=== PATIENT | female | born 1995 | race Caucasian/White ===

== ENCOUNTER 2016-06-19 21:46 | Emergency (ER) | payer MEDICAID ==
[2016-06-19 22:35] VITALS: BP 112/66
[2016-06-19] MEDS ORDERED: Sodium Chloride 0.9% 1,000 ML IV ONE (22:39)
--- NOTE | 2016-06-19 22:59 | EDM.PDOC ---
ED HPI GENERAL MEDICAL PROBLEM - General Stated Complaint: LIGHT HEADED AND DARK VISION Time Seen by Provider: 06/19/16 21:50 Source of Information: Reports: Patient, Family History Limitations: Reports: No limitations - History of Present Illness INITIAL COMMENTS - FREE TEXT/NARRATIVE: 21 years old w f AB1 came to the ed because of a near syncopal episode. Pt 's LNMP was Jan 23 2016. She has occ dizzy spells and was just to pas out. Pt denied pain. no vag discharge. Pt vomited last week but not in the fast 3 days. last pelvic US at 8 weeks of was nl. No other acute medical issues at this time. 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 Musculoskeletal History: Reports: Fracture Neurological History: Reports: Concussion Social & Family History - Family History Family Medical History: Noncontributory - Tobacco Use Smoking Status *Q: Current Every Day Smoker Years of Tobacco use: 15 Packs/Tins Daily: 1 Second Hand Smoke Exposure: Yes - Caffeine Use Caffeine Use: Reports: Coffee - Alcohol Use Days Per Week of Alcohol Use: 7 Number of Drinks Per Day: 15 Total Drinks Per Week: 105 - Recreational Drug Use Recreational Drug Use: No ED ROS GENERAL - Review of Systems Review Of Systems: See Below Constitutional: Reports: fatigue, decreased appetite HEENT: Reports: No symptoms Respiratory: Reports: No Symptoms Cardiovascular: Reports: No symptoms Endocrine: Reports: no symptoms GI/Abdominal: Reports: No symptoms : Reports: no symptoms Musculoskeletal: Reports: no symptoms Skin: Reports: no symptoms Neurological: Reports: Dizziness Psychiatric: Reports: No symptoms Hematologic/Lymphatic: Reports: no symptoms Immunologic: Reports: no symptoms ED EXAM, GENERAL - Physical Exam Exam: See Below Exam Limited By: No limitations General Appearance: alert, WD/WN, mild distress Eye Exam: bilateral eye: normal inspection Ears: normal external exam Ear Exam: bilateral ear: auricle normal Nose: normal inspection, normal mucosa, no blood Throat/Mouth: Normal inspection, Normal lips, Normal teeth Head: atraumatic, normocephalic, facial swelling Neck: normal inspection, supple, non-tender Respiratory/Chest: no respiratory distress Cardiovascular: normal peripheral pulses, regular rate, rhythm, no edema, no gallop, no JVD, no murmur, no rub Peripheral Pulses: 2+: femoral (L), femoral (R) GI/Abdominal: normal bowel sounds, soft, non tender, no organomegaly, no distention, no abnormal bruit (Female) Exam: Deferred Rectal (Female) Exam: Deferred Back Exam: normal inspection, full range of motion Extremities: normal inspection, normal range of motion, non-tender, no pedal edema Neurological: alert, oriented, CN II-XII intact, normal cognition, normal gait Psychiatric: normal affect, normal mood Skin Exam: Warm, Dry, Intact, No rash, Pallor Lymphatic: no adenopathy Course - Vital Signs Text/Narrative:: 21 years old w f AB1, smoker, came to the ed because of a near syncopal episode. Pt's LNMP was Jan 23 2016. She has occ dizzy spells and was just to pas out. Pt denied pain. no vag discharge. Pt vomited last week but not in the fast 3 days. last pelvic US at 8 weeks of was nl. No other acute medical issues at this time. PE: well appearing 21 y.o.w.f s/o near [place] 3 days ago Labs: potassium 3.3 Impression: Hypokalemia, near syncopal episode 3 days ago Tx: NS, potassium Reexam: Improved Plan: D/C with instructions. Last Recorded V/S: Last Vital Signs Temp 36.1 C 06/19/16 21:50 Pulse 76 06/19/16 21:50 Resp 20 06/19/16 21:50 BP 112/66 06/19/16 21:50 Pulse Ox 100 06/19/16 21:50 - Orders/Labs/Meds Orders: Active Orders 24 hr Category Date Time Status HCG QUANTITATIVE,SERUM [CHEM] Stat Lab 06/19/16 22:50 Received Labs: Laboratory Tests 06/19/16 06/19/16 06/19/16 Range/Units 22:50 22:50 22:50 WBC 6.8 (4.5-12.0) X10-3/uL RBC 3.51 (3.23-5.20) x10(6)uL Hgb 12.0 (11.5-15.5) g/dL Hct 33.3 (30.0-51.3) % MCV 94.9 (80-96) fL MCH 34.1 H (27.7-33.6) pg MCHC 36.0 H (32.2-35.4) g/dL RDW 12.3 (11.5-15.5) % Plt Count 218 (125-369) X10(3)uL MPV 8.1 (7.4-10.4) fL Neut % (Auto) 71.8 (46-82) % Lymph % (Auto) 20.9 (13-37) % [place] % (Auto) 6.0 (4-12) % Eos % (Auto) 1 (1.0-5.0) % Baso % (Auto) 0 (0-2) % Neut # (Auto) 4.9 (1.6-8.3) # Lymph # (Auto) 1.4 (0.6-5.0) # [place] # (Auto) 0.4 (0.0-1.3) # Eos # (Auto) 0.1 (0.0-0.8) # Baso # (Auto) 0.0 (0.0-0.2) # PT 9.6 (8.7-11.1) INR 0.95 (0.89-1.13) Sodium 135 (135-145) mmol/L Potassium 3.3 L (3.5-5.3) mmol/L Chloride 106 (100-110) mmol/L Carbon Dioxide 23 (23-29) mmol/L BUN 4 L (5-20) mg/dL Creatinine 0.5 L (0.6-1.3) mg/dL Est Cr Clr Drug Dosing 182.88 mL/min Estimated GFR (MDRD) > 60 (>60) BUN/Creatinine Ratio 8.0 L (9-20) Glucose 82 (80-116) mg/dL Calcium 8.7 (8.6-10.2) mg/dL Urine Color (YELLOW) Urine Appearance (CLEAR) Urine pH (5.0-6.5) Ur Specific [place] (1.010-1.025) Urine Protein (NEGATIVE) mg/dL Urine Glucose (UA) (NEGATIVE) mg/dL Urine Ketones (NEGATIVE) mg/dL Urine Occult Blood (NEGATIVE) Urine Nitrite (NEGATIVE) Urine Bilirubin (NEGATIVE) Urine Urobilinogen (NEGATIVE) mg/dL Ur Leukocyte Esterase (NEGATIVE) Urine RBC (0) Urine WBC (0) Ur Squamous Epith Cells (NS,R,O) Urine Bacteria (NS) 06/19/16 Range/Units 22:55 WBC (4.5-12.0) X10-3/uL RBC (3.23-5.20) x10(6)uL Hgb (11.5-15.5) g/dL Hct (30.0-51.3) % MCV (80-96) fL MCH (27.7-33.6) pg MCHC (32.2-35.4) g/dL RDW (11.5-15.5) % Plt Count (125-369) X10(3)uL MPV (7.4-10.4) fL Neut % (Auto) (46-82) % Lymph % (Auto) (13-37) % [place] % (Auto) (4-12) % Eos % (Auto) (1.0-5.0) % Baso % (Auto) (0-2) % Neut # (Auto) (1.6-8.3) # Lymph # (Auto) (0.6-5.0) # [place] # (Auto) (0.0-1.3) # Eos # (Auto) (0.0-0.8) # Baso # (Auto) (0.0-0.2) # PT (8.7-11.1) INR (0.89-1.13) Sodium (135-145) mmol/L Potassium (3.5-5.3) mmol/L Chloride (100-110) mmol/L Carbon Dioxide (23-29) mmol/L BUN (5-20) mg/dL Creatinine (0.6-1.3) mg/dL Est Cr Clr Drug Dosing mL/min Estimated GFR (MDRD) (>60) BUN/Creatinine Ratio (9-20) Glucose (80-116) mg/dL Calcium (8.6-10.2) mg/dL Urine Color Yellow (YELLOW) Urine Appearance Clear (CLEAR) Urine pH 6.5 (5.0-6.5) Ur Specific [place] 1.000 L (1.010-1.025) Urine Protein Negative (NEGATIVE) mg/dL Urine Glucose (UA) Normal (NEGATIVE) mg/dL Urine Ketones Negative (NEGATIVE) mg/dL Urine Occult Blood Negative (NEGATIVE) Urine Nitrite Negative (NEGATIVE) Urine Bilirubin Negative (NEGATIVE) Urine Urobilinogen Normal (NEGATIVE) mg/dL Ur Leukocyte Esterase Negative (NEGATIVE) Urine RBC 0-5 (0) Urine WBC 0-5 (0) Ur Squamous Epith Cells Moderate H (NS,R,O) Urine Bacteria Moderate H (NS) Meds: Medications Discontinued Medications Generic Name Dose Route Start Last Admin Trade Name Freq PRN Reason Stop Dose Admin Sodium Chloride 1,000 mls @ 999 mls/hr 06/19/16 22:39 06/19/16 22:59 Normal Saline IV 06/19/16 23:39 999 mls/hr .BOLUS ONE Administration Potassium Chloride 40 meq 06/19/16 23:26 06/19/16 23:50 Klor-Con M20 PO 06/19/16 23:27 40 meq ONETIME ONE Administration Departure - Departure Time of Disposition: 23:47 Disposition: Home, Self-Care 01 Condition: good Clinical Impression: Hypokalemia, Vasovagal near syncope Prescriptions: Ondansetron [Zofran ODT] 4 mg PO Q6H PRN #20 tab.dis PRN Reason: Nausea Referrals: Tommie Aguilar MD [Primary Care Provider] - Forms: ED Department Discharge, Return to Work/School Form Additional Instructions: Please quit tobacco use, please take Zofran for nausea, please increase food and water intake, please f/u, please come back if your symptoms get worse acutely. - My Orders Last 24 Hours: My Active Orders 06/19/16 22:50 HCG QUANTITATIVE,SERUM [CHEM] Stat - Assessment/Plan Last 24 Hours: My Active Orders 06/19/16 22:50 HCG QUANTITATIVE,SERUM [CHEM] Stat
[2016-06-19] MEDS ORDERED: Potassium Chloride 20 MEQ Tab.ER PO ONE (23:26)
== END 2016-06-20 00:15 | disposition home or self-care (01) ==
LOC: FB.ED 21:46
DX: O99.282 Endocrine, nutritional and metabolic diseases complicating pregnancy, second trimester (principal); E87.6 Hypokalemia; R55 Syncope and collapse; O99.332 Smoking (tobacco) complicating pregnancy, second trimester; F17.210 Nicotine dependence, cigarettes, uncomplicated
CPT/HCPCS: 80048; 81001; 84702; 85025; 85610; 96360; 99283; A9270; J7040

== ENCOUNTER 2016-12-07 06:55 | Inpatient (IN) | payer MEDICAID ==
[2016-12-07] MEDS ORDERED: Misoprostol 25 MCG (1/4 of 100 MCG) Tab VAG ONE (07:08)
[2016-12-07] MEDS ORDERED: Sodium Chloride 0.9% 10 ML Syringe FLUSH PRN (08:55)
--- NOTE | 2016-12-07 09:25 | PCM.LDHP ---
L&D History of Present Illness - General Date of Service: 12/07/16 Admit Problem/Dx: Patient Status Order with Admit Dx/Problem 12/07/16 07:00 Admission Status [Patient Status] [ADT] Routine Admission Diagnosis/Problem Admission Diagnosis/Problem History Limitations: Reports: No Limitations - History of Present Illness Introduction:: 21-year-old female primigravida here for induction of labor EDC 12/05. She has no complaints today. Active movements. No bleeding all dysuria or frequency. Group B Strep negative. care unremarkable - Related Data Allergies/Adverse Reactions: Allergies Allergy/AdvReac Type Severity Reaction Status Date / Time No Known Allergies Allergy Verified 12/07/16 07:26 Home Medications: Home Meds PNV95/Ferrous Fumarate/FA [ Tablet] 1 each PO DAILY 12/06/16 [History] Past Medical History HEENT History: Reports: Impaired Vision [employer] WORK[employer] History: Reports: , Spontaneous Other OB/BYN History: 16 weeks at this time Musculoskeletal History: Reports: Fracture Neurological History: Reports: Concussion - Infectious Disease History Infectious Disease History: Reports: Chicken Pox - Past Surgical History HEENT Surgical History: Reports: None Neurological Surgical History: Reports: None Musculoskeletal Surgical History: Reports: None Oncologic Surgical History: Reports: None Social & Family History - Family History Family Medical History: Noncontributory Psychiatric: Reports: Other (See Below) Other Psychiatric Family History: mother has mental illness Endocrine/Metabolic: Reports: Diabetes, type II Other Endocrine/Metabolic Family History: mother has diabetes - Tobacco Use Smoking Status *Q: Current Every Day Smoker Years of Tobacco use: 15 Packs/Tins Daily: 1 Used Tobacco, but Quit: No Second Hand Smoke Exposure: Yes - Caffeine Use Caffeine Use: Reports: None - Alcohol Use Days Per Week of Alcohol Use: 7 Number of Drinks Per Day: 15 Total Drinks Per Week: 105 - Recreational Drug Use Recreational Drug Use: No H&P Review of Systems - Review of Systems: Review Of Systems: ROS reveals no pertinent complaints other than HPI. L&D Exam - Exam Exam: See Below - Vital Signs Vital Signs: Last Vital Signs Temp 98.8 F 12/07/16 07:06 Pulse 83 12/07/16 07:06 Resp 20 12/07/16 07:06 BP 123/74 12/07/16 07:06 Pulse Ox 100 12/07/16 07:06 Weight: 82.1 kg - OB Specific Contraction Intensity: Irritability - Mercedes Score Mercedes Score Cervix Position: Posterior Mercedes Score Consistency: Soft Mercedes Score Dilation: Closed Mercedes Score 's Station: -3 - Exam General: Alert, Oriented HEENT: PERRLA, Conjunctiva Clear, EACs Clear, EOMI, Hearing Intact, Mucosa Moist & [place], Nares Patent, Normal Nasal Septum, Posterior Pharynx Clear, TMs Clear Neck: Supple, Trachea Midline Lungs: Clear to Auscultation, Normal Respiratory Effort Cardiovascular: Regular Rate, Regular Rhythm GI/Abdominal Exam: Normal Bowel Sounds, Soft, Non-Tender, No Organomegaly, No Distention, No Abnormal Bruit, No Mass, Pelvis Stable Rectal Exam: Normal Exam, Normal Rectal Tone Genitourinary: Normal external exam, Normal bimanual exam, Normal speculum exam Back Exam: Normal Inspection, Full Range of Motion Extremities: Normal Inspection, Normal Range of Motion, Non-Tender, No Pedal Edema, Normal Capillary Refill Skin: Warm, Dry, Intact Neurological: Cranial Nerves Intact, Reflexes Equal Bilateral Psychiatric: Alert, Normal Affect, Normal Mood - Problem List (1) Term SNOMED Code(s): 89185227 ICD Code: Z34.80 - ENCOUNTER FOR SUPRVSN OF NORMAL , UNSP TRIMESTER Status: Acute Current Visit: Yes (2) Elective induction of labor planned SNOMED Code(s): 704893303 ICD Code: SMH5369 - Status: Acute Current Visit: Yes Problem List Initiated/Reviewed/Updated: Yes Orders Last 24hrs: Active Orders 24 hr Category Date Time Status Admission Status [Patient Status] [ADT] Routine ADT 12/07/16 07:00 Active Regular Diet [DIET] Diet 12/07/16 Lunch Active Sodium Chloride 0.9% [Saline Flush] Med 12/07/16 08:55 Active 10 ml FLUSH ASDIRECTED PRN Peripheral IV Insertion Adult [OM.PC] Routine Oth 12/07/16 08:55 Ordered Medication Orders Sodium Chloride (Saline Flush) 10 ml FLUSH ASDIRECTED PRN PRN Reason: Keep Vein Open Assessment/Plan Comment:: Routine Cytotec induction, she has unfavorable cervix. We'll probably repeat another one around noon and then start Pitocin.
[2016-12-07] MEDS ORDERED: Measles, Mumps & Rubella Vaccine 0.5 ML SDV SUBCUT ONE (11:11)
[2016-12-07] MEDS ORDERED: Lactated Ringers 1,000 ML IV ONE (14:35)
[2016-12-07] MEDS: Lactated Ringers 1,000 ML IV SCH ×3 (15:30→20:11)
[2016-12-07] MEDS ORDERED: ePHEDrine 50 MG/ML SDV ONE (17:37)
[2016-12-07] MEDS ORDERED: Naloxone 0.4 MG/ML SDV ONE (17:38)
[2016-12-07] MEDS ORDERED: fentaNYL 300 MCG in Ropivacaine 200 ML EPIDUR ONE (17:46)
[2016-12-07] MEDS ORDERED: fentaNYL 100 MCG/2 ML SDV EPIDUR ONE (17:46)
[2016-12-07] MEDS ORDERED: ePHEDrine 50 MG/ML SDV IVPUSH PRN (19:00)
[2016-12-07] MEDS ORDERED: hydrOXYzine HCl 50 MG/ML SDV IM PRN ×2 (19:00)
[2016-12-07] MEDS ORDERED: Naloxone 0.4 MG in Sodium Chloride 0.9% 100 ML IV PRN (19:00)
[2016-12-07] MEDS ORDERED: diphenhydrAMINE 50 MG/ML SDV IVPUSH PRN (19:00)
[2016-12-07] MEDS ORDERED: Naloxone 0.4 MG/ML SDV IVPUSH PRN (19:00)
[2016-12-07] MEDS ORDERED: Promethazine 25 MG/ML SDV IV PRN (19:00)
[2016-12-07] MEDS ORDERED: Ondansetron 4 MG/2 ML SDV IVPUSH PRN (19:05)
[2016-12-07] MEDS ORDERED: Lactated Ringers 500 ML IV ONE (19:15)
--- NOTE | 2016-12-07 21:38 | PCM.PNLD ---
Labor Progress Note - VS & Meds Vital Signs: Last Vital Signs Temp 98.3 F 12/07/16 17:33 Pulse 72 12/07/16 17:33 Resp 18 12/07/16 17:33 BP 129/80 12/07/16 17:33 Pulse Ox 100 12/07/16 17:33 Active Medications: Current Medications Diphenhydramine HCl (Benadryl) 25 mg IVPUSH ASDIRECTED PRN PRN Reason: PRURITUS Ephedrine Sulfate (Ephedrine Sulfate) 5 mg IVPUSH ASDIRECTED PRN PRN Reason: HYPOTENSION Hydroxyzine HCl (Vistaril) 50 mg IM Q6H PRN PRN Reason: PRURITIS Hydroxyzine HCl (Vistaril) 0 mg IM Q4H PRN PRN Reason: N/V Lactated Ringer's (Ringers, Lactated) 1,000 mls @ 150 mls/hr IV ASDIRECTED ADITI Last Admin: 12/07/16 20:11 Dose: 150 mls/hr Naloxone HCl 0.4 mg/ Sodium (Chloride) 101 mls @ 25 mls/hr IV ASDIRECTED PRN PRN Reason: PER ORDER OF ANESTHESIA Naloxone HCl (Narcan) 0.1 mg IVPUSH ASDIRECTED PRN PRN Reason: RESPIRATORY STATUS Ondansetron HCl (Zofran) 4 mg IVPUSH Q6H PRN PRN Reason: Nausea/Vomiting Promethazine HCl (Phenergan) 6.25 - 12.5 mg IV Q4H PRN PRN Reason: NAUSEA AND VOMITING Sodium Chloride (Saline Flush) 10 ml FLUSH ASDIRECTED PRN PRN Reason: Keep Vein Open Discontinued Medications Ephedrine Sulfate (Ephedrine Sulfate) Confirm Administered Dose 50 mg .ROUTE .STK-MED ONE Stop: 12/07/16 17:38 Lactated Ringer's (Ringers, Lactated) 1,000 mls @ 999 mls/hr IV BOLUS ONE Stop: 12/07/16 15:35 Last Admin: 12/07/16 14:35 Dose: 999 mls/hr Lactated Ringer's (Ringers, Lactated) 500 mls @ 999 mls/hr IV ONETIME ONE Stop: 12/07/16 19:45 Measles/Mumps/Rubella Vaccine Live (M-M-R Ii Vaccine) 0.5 ml SUBCUT .ONCE ONE Stop: 12/07/16 11:12 Misoprostol (Cytotec) 25 mcg VAG ONETIME ONE Stop: 12/07/16 07:09 Last Admin: 12/07/16 08:43 Dose: 25 mcg Naloxone HCl (Narcan) Confirm Administered Dose 0.4 mg .ROUTE .STK-MED ONE Stop: 12/07/16 17:39 - Uterine Contractions Uterine Monitoring Mode: External Henriette Contraction Frequency (min): 4-5 Contraction Duration (sec): 50-70 Contraction Intensity: Mild Uterine Resting Tone: Soft - Vaginal Exam Dilation (cm): 7 Effacement (Percent): 90 Station: -1 Cervical Position: Midposition Sterile Vaginal Exam Performed By: Otilia Balderas - Labor Progress (Free Text) Labor Progress: I broke the water about 5 PM.Clear fluid.Patient requested epidural. She is resting comfortably about 7 cm at this time we'll continue with expectant management.
[2016-12-08] MEDS ORDERED: Oxytocin 10 Units/1 ML SDV IV ONE (00:45)
[2016-12-08] MEDS ORDERED: Ibuprofen 600 MG Tab PO PRN (00:59)
[2016-12-08] MEDS ORDERED: Acetaminophen/HYDROcodone 325-5 MG Tab PO PRN (00:59)
--- NOTE | 2016-12-08 01:05 | PCM.DEL ---
L & D Note - General Info Date of Service: 12/08/16 Mother's Due Date: 12/05/16 - Delivery Note Labor: Augmented by ARM Cervical Ripening Method: Misoprostil Delivery Outcome: Livebirth Infant Delivery Method: Spontaneous Vaginal Delivery-Single Presentation: Left Occiput Anterior (ARIC) Nuchal Cord: None Prep: Povidone-Iodine (Betadine Anesthesia Type: Epidural Amniotic Fluid Description: Meconium Stained Episiotomy Type: None Laceration: 1st Degree, Perineal, Periurethral Placenta: Intact, Spontaneous Cord: 3 Vessels Estimated Blood Loss: 250 [place]: Bulb Syringe, [place] Used, Warmer Used Score 1 min: 8 Score 5 min: 9 Second Stage Interventions: Reports: Second Nurse Assessed Progress of Descent, Second Nurse Reviewed Contraction Pattern, Second Nurse Reviewed Heart Tones, Encouragement Given, Pushing Effectively, Pushing, Knee Chest Position - General Info Date of Service: 12/08/16 Functional Status: Reports: Pain Controlled - Review of Systems General: Reports: No Symptoms HEENT: Reports: No Symptoms Pulmonary: Reports: No Symptoms Cardiovascular: Reports: No Symptoms Gastrointestinal: Reports: No Symptoms Genitourinary: Reports: No Symptoms Musculoskeletal: Reports: No Symptoms Skin: Reports: No Symptoms Neurological: Reports: No Symptoms Psychiatric: Reports: No Symptoms - Patient Data Vitals - Most Recent: Last Vital Signs Temp 98.8 F 12/07/16 21:00 Pulse 69 12/07/16 21:00 Resp 17 12/07/16 21:00 BP 125/76 12/07/16 21:00 Pulse Ox 98 12/07/16 21:00 Weight - Most Recent: 82.1 kg I&O - Last 24 Hours: Intake & Output 12/07/16 12/07/16 12/08/16 14:59 22:59 06:59 Intake Total 1000 Output Total 500 1950 Balance 500 -1950 Med Orders - Current: Current Medications Diphenhydramine HCl (Benadryl) 25 mg IVPUSH ASDIRECTED PRN PRN Reason: PRURITUS Ephedrine Sulfate (Ephedrine Sulfate) 5 mg IVPUSH ASDIRECTED PRN PRN Reason: HYPOTENSION Hydroxyzine HCl (Vistaril) 50 mg IM Q6H PRN PRN Reason: PRURITIS Hydroxyzine HCl (Vistaril) 0 mg IM Q4H PRN PRN Reason: N/V Lactated Ringer's (Ringers, Lactated) 1,000 mls @ 150 mls/hr IV ASDIRECTED ADITI Last Admin: 12/07/16 20:11 Dose: 150 mls/hr Naloxone HCl 0.4 mg/ Sodium (Chloride) 101 mls @ 25 mls/hr IV ASDIRECTED PRN PRN Reason: PER ORDER OF ANESTHESIA Naloxone HCl (Narcan) 0.1 mg IVPUSH ASDIRECTED PRN PRN Reason: RESPIRATORY STATUS Ondansetron HCl (Zofran) 4 mg IVPUSH Q6H PRN PRN Reason: Nausea/Vomiting Promethazine HCl (Phenergan) 6.25 - 12.5 mg IV Q4H PRN PRN Reason: NAUSEA AND VOMITING Sodium Chloride (Saline Flush) 10 ml FLUSH ASDIRECTED PRN PRN Reason: Keep Vein Open Discontinued Medications Ephedrine Sulfate (Ephedrine Sulfate) Confirm Administered Dose 50 mg .ROUTE .[employer] ONE Stop: 12/07/16 17:38 Last Admin: 12/07/16 21:58 Dose: Not Given Lactated Ringer's (Ringers, Lactated) 1,000 mls @ 999 mls/hr IV BOLUS ONE Stop: 12/07/16 15:35 Last Admin: 12/07/16 14:35 Dose: 999 mls/hr Lactated Ringer's (Ringers, Lactated) 500 mls @ 999 mls/hr IV ONETIME ONE Stop: 12/07/16 19:45 Last Admin: 12/07/16 21:58 Dose: Not Given Measles/Mumps/Rubella Vaccine Live (M-M-R Ii Vaccine) 0.5 ml SUBCUT .ONCE ONE Stop: 12/07/16 11:12 Misoprostol (Cytotec) 25 mcg VAG ONETIME ONE Stop: 12/07/16 07:09 Last Admin: 12/07/16 08:43 Dose: 25 mcg Naloxone HCl (Narcan) Confirm Administered Dose 0.4 mg .ROUTE .STK-MED ONE Stop: 12/07/16 17:39 Last Admin: 12/07/16 21:58 Dose: Not Given - Exam General: Alert, Oriented HEENT: Pupils Equal, Pupils Reactive, EOMI, Mucous Membr. Moist/[place] Neck: Supple Lungs: Clear to Auscultation, Normal Respiratory Effort Cardiovascular: Regular Rate, Regular Rhythm GI/Abdominal Exam: Normal Bowel Sounds, Soft, Non-Tender, No Organomegaly, No Distention, No Abnormal Bruit, No Mass, Pelvis Stable (Female) Exam: Normal External Exam, Normal Speculum Exam, Normal Bimanual Exam Back Exam: Normal Inspection, Full Range of Motion Extremities: Normal Inspection, Normal Range of Motion, Non-Tender, No Pedal Edema, Normal Capillary Refill Skin: Warm, Dry, Intact Wound/Incisions: Healing Well Neurological: No New Focal Deficit Psy/Mental Status: Alert, Normal Affect, Normal Mood - Problem List & Annotations (1) Term SNOMED Code(s): 56508951 Code(s): Z34.80 - ENCOUNTER FOR SUPRVSN OF NORMAL , UNSP TRIMESTER Status: Acute Current Visit: Yes (2) Elective induction of labor planned SNOMED Code(s): 933937864 Code(s): [id number] - Status: Acute Current Visit: Yes (3) Vaginal delivery SNOMED Code(s): 122654765 Code(s): O80 - ENCOUNTER FOR FULL-TERM UNCOMPLICATED DELIVERY Status: Acute Current Visit: Yes - Problem List Review Problem List Initiated/Reviewed/Updated: Yes - My Orders Last 24 Hours: My Active Orders 12/07/16 07:00 Admission Status [Patient Status] [ADT] Routine 12/07/16 08:55 Sodium Chloride 0.9% [Saline Flush] 10 ml FLUSH ASDIRECTED PRN Peripheral IV Insertion Adult [OM.PC] Routine 12/07/16 11:13 Vaccines to be Administered [RC] QSHIFT 12/07/16 15:45 Lactated Ringers [Ringers, Lactated] 1,000 ml IV ASDIRECTED 12/07/16 17:06 Admission Status [Patient Status] [ADT] Routine 12/07/16 19:00 Naloxone [Narcan] 0.1 mg IVPUSH ASDIRECTED PRN Naloxone [Narcan] 0.4 mg Sodium Chloride 0.9% [Normal Saline] 100 ml IV ASDIRECTED Promethazine [Phenergan] 6.25 - 12.5 mg IV Q4H PRN diphenhydrAMINE [Benadryl] 25 mg IVPUSH ASDIRECTED PRN ePHEDrine [ePHEDrine Sulfate] 5 mg IVPUSH ASDIRECTED PRN hydrOXYzine HCl [Vistaril] 0 mg IM Q4H PRN hydrOXYzine HCl [Vistaril] 50 mg IM Q6H PRN 12/07/16 19:05 Ondansetron [Zofran] 4 mg IVPUSH Q6H PRN 12/07/16 21:00 Urinary Catheter Insertion [Insert Urinary Catheter] [OM.PC] Q24H 12/07/16 21:01 Urinary Catheter Assessment [RC] QSHIFT 12/07/16 Lunch Regular Diet [DIET] 12/08/16 00:59 Up ad [place] [RC] ASDIRECTED Vital Signs [RC] PFP Acetaminophen/HYDROcodone [[place] 325-5 MG] 1 tab PO Q4H PRN Ibuprofen [Motrin] 600 mg PO Q4H PRN Assess Uterine Involution [WOMSER] Per Unit Routine Resuscitation Status Routine 12/08/16 01:00 Ice Therapy [OM.PC] Per Unit Routine Perineal Care [OM.PC] Per Unit Routine 12/08/16 05:11 CBC WITH AUTO DIFF [HEME] AM - Plan Plan:: Routine OB post care.
--- NOTE | 2016-12-09 08:16 | PCM.PNPP ---
- General Info Date of Service: 12/09/16 Functional Status: Reports: Pain Controlled, Tolerating Diet - Review of Systems General: Reports: No Symptoms HEENT: Reports: No Symptoms Pulmonary: Reports: No Symptoms Cardiovascular: Reports: No Symptoms Gastrointestinal: Reports: No Symptoms Genitourinary: Reports: No Symptoms Musculoskeletal: Reports: No Symptoms Skin: Reports: No Symptoms Neurological: Reports: No Symptoms Psychiatric: Reports: No Symptoms - General Info Date of Service: 12/09/16 - Patient Data Vital Signs - Most Recent: Last Vital Signs Temp 98.3 F 12/09/16 01:00 Pulse 79 12/09/16 01:00 Resp 18 12/09/16 01:00 BP 109/71 12/09/16 01:00 Pulse Ox 98 12/09/16 01:00 Weight - Most Recent: 82.1 kg Med Orders - Current: Current Medications Hydrocodone Bitart/Acetaminophen ([place] 325-5 Mg) 1 tab PO Q4H PRN PRN Reason: Pain (moderate 4-6) Last Admin: 12/08/16 02:36 Dose: 1 tab Ibuprofen (Motrin) 600 mg PO Q4H PRN PRN Reason: Pain Last Admin: 12/08/16 15:50 Dose: 600 mg Sodium Chloride (Saline Flush) 10 ml FLUSH ASDIRECTED PRN PRN Reason: Keep Vein Open Discontinued Medications Diphenhydramine HCl (Benadryl) 25 mg IVPUSH ASDIRECTED PRN PRN Reason: PRURITUS Ephedrine Sulfate (Ephedrine Sulfate) Confirm Administered Dose 50 mg .ROUTE .STK-MED ONE Stop: 12/07/16 17:38 Last Admin: 12/07/16 21:58 Dose: Not Given Ephedrine Sulfate (Ephedrine Sulfate) 5 mg IVPUSH ASDIRECTED PRN PRN Reason: HYPOTENSION Hydroxyzine HCl (Vistaril) 50 mg IM Q6H PRN PRN Reason: PRURITIS Hydroxyzine HCl (Vistaril) 0 mg IM Q4H PRN PRN Reason: N/V Lactated Ringer's (Ringers, Lactated) 1,000 mls @ 999 mls/hr IV BOLUS ONE Stop: 12/07/16 15:35 Last Admin: 12/07/16 14:35 Dose: 999 mls/hr Lactated Ringer's (Ringers, Lactated) 1,000 mls @ 150 mls/hr IV ASDIRECTED ADITI Last Admin: 12/07/16 20:11 Dose: 150 mls/hr Naloxone HCl 0.4 mg/ Sodium (Chloride) 101 mls @ 25 mls/hr IV ASDIRECTED PRN PRN Reason: PER ORDER OF ANESTHESIA Lactated Ringer's (Ringers, Lactated) 500 mls @ 999 mls/hr IV ONETIME ONE Stop: 12/07/16 19:45 Last Admin: 12/07/16 21:58 Dose: Not Given Measles/Mumps/Rubella Vaccine Live (M-M-R Ii Vaccine) 0.5 ml SUBCUT .ONCE ONE Stop: 12/07/16 11:12 Misoprostol (Cytotec) 25 mcg VAG ONETIME ONE Stop: 12/07/16 07:09 Last Admin: 12/07/16 08:43 Dose: 25 mcg Naloxone HCl (Narcan) Confirm Administered Dose 0.4 mg .ROUTE .STK-MED ONE Stop: 12/07/16 17:39 Last Admin: 12/07/16 21:58 Dose: Not Given Naloxone HCl (Narcan) 0.1 mg IVPUSH ASDIRECTED PRN PRN Reason: RESPIRATORY STATUS Ondansetron HCl (Zofran) 4 mg IVPUSH Q6H PRN PRN Reason: Nausea/Vomiting Last Admin: 12/08/16 00:00 Dose: 4 mg Oxytocin (Pitocin) 20 unit IV ONETIME ONE Stop: 12/08/16 00:46 Last Admin: 12/08/16 00:46 Dose: 20 unit Promethazine HCl (Phenergan) 6.25 - 12.5 mg IV Q4H PRN PRN Reason: NAUSEA AND VOMITING - Interaction Support Person: Significant Other - Recovery Exam Fundal Tone: Firm Fundal Level: 1 Fingerbreadths Below Umbilicus Fundal Placement: Midline Lochia Amount: Small, Moderate Lochia Color: Rubra/Red Perineum Description: Intact, Minimal Bruising/Swelling Episiotomy/Laceration: None Bladder Status: Voiding Urinary Elimination: Voided - Exam General: Alert, Oriented HEENT: Pupils Equal Neck: Supple Lungs: Clear to Auscultation, Normal Respiratory Effort Cardiovascular: Regular Rate, Regular Rhythm GI/Abdominal Exam: Normal Bowel Sounds, Soft, Non-Tender, No Organomegaly, No Distention, No Abnormal Bruit, No Mass, Pelvis Stable Extremities: Normal Inspection, Normal Range of Motion, Non-Tender, No Pedal Edema, Normal Capillary Refill Skin: Warm, Dry, Intact Wound/Incisions: Healing Well Neurological: No New Focal Deficit Psy/Mental Status: Alert, Normal Affect, Normal Mood - Problem List & Annotations (1) Term SNOMED Code(s): 82701144 Code(s): Z34.80 - ENCOUNTER FOR SUPRVSN OF NORMAL , UNSP TRIMESTER Status: Acute Current Visit: Yes (2) Elective induction of labor planned SNOMED Code(s): 820119666 Code(s): MFW9077 - Status: Acute Current Visit: Yes (3) Vaginal delivery SNOMED Code(s): 626494804 Code(s): O80 - ENCOUNTER FOR FULL-TERM UNCOMPLICATED DELIVERY Status: Acute Current Visit: Yes - Problem List Review Problem List Initiated/Reviewed/Updated: Yes - My Orders Last 24 Hours: My Active Orders 12/08/16 09:57 Convert IV to Saline Lock [OM.PC] Routine - Plan Plan:: DC home today
--- NOTE | 2016-12-09 08:34 | DISCH ---
DISCHARGE DATE: 12/09/2016 REASON FOR ADMISSION: Induction of labor. DISCHARGE DIAGNOSIS: Spontaneous vaginal delivery. BRIEF HISTORY AND HOSPITAL COURSE: A 21-year-old female who was admitted on the for induction of labor. She this was done by Cytotec and then progressed and augmented by ARM. She delivered at around 0100 hours, live female infant, has done well . Her hemoglobin 10.0. Vital signs have remained well and lochia has improved, bleeding much better. Discharged today to see me in the clinic in 6 weeks. DISCHARGE MEDICATIONS: 1. vitamins. 2. Motrin p.r.n. Please note that I spent more than 35 minutes in the discharge of the patient. /[id number] AGUEDA/ORALIA
[2016-12-09 09:40] VITALS: BP 132/92
== END 2016-12-09 10:05 | disposition home or self-care (01) | DRG 775 ==
LOC: EDSTATUS 06:57 → UNDOADMOB 06:57 → FB.OB 06:57 → OBSVTOIN 17:06 → INTOOBSV 17:06 → OBSVTOIN 12-08 00:42 → FB.OB 12-08 00:42 → UNDODISIN 12-09 10:05
PROVIDERS: ADMIT Family Medicine; ATTEND Family Medicine
PROC: 10E0XZZ Delivery of Products of Conception, External Approach (ICD-10-PCS; principal; 2016-12-08)
PROC: 10907ZC Drainage of Amniotic Fluid, Therapeutic from Products of Conception, Via Natural or Artificial Opening (ICD-10-PCS; 2016-12-08)
PROC: 3E0P7GC Introduction of Other Therapeutic Substance into Female Reproductive, Via Natural or Artificial Opening (ICD-10-PCS; 2016-12-08)
PROC: 3E033VJ Introduction of Other Hormone into Peripheral Vein, Percutaneous Approach (ICD-10-PCS; 2016-12-08)
DX: O77.0 Labor and delivery complicated by meconium in amniotic fluid (principal); O99.334 Smoking (tobacco) complicating childbirth; O70.0 First degree perineal laceration during delivery; Z3A.40 40 weeks gestation of pregnancy; Z37.0 Single live birth
CPT/HCPCS: 36415; 51701; 59409; 85025; 90471; 90707; A9270-GY; J2405; J2590; J2795; J3010; J7120

== ENCOUNTER 2017-05-24 20:52 | Emergency (ER) | payer MEDICAID ==
--- NOTE | 2017-05-24 21:17 | EDM.PDOC ---
ED HPI GENERAL MEDICAL PROBLEM - General Chief Complaint: General Stated Complaint: LIGHT HEADED Time Seen by Provider: 05/24/17 21:05 Source of Information: Reports: Patient History Limitations: Reports: No Limitations - History of Present Illness INITIAL COMMENTS - FREE TEXT/NARRATIVE: c/o V x 1 pt lightheaded yesterday, working at [employer] and had emesis x 1, thinks she might be , LMP 1m ago boss told her to come to ED needs note for work - Related Data Allergies Allergy/AdvReac Type Severity Reaction Status Date / Time No Known Allergies Allergy Verified 05/24/17 21:38 Home Meds: Home Meds NK [No Known Home Meds] 05/24/17 [History] Past Medical History HEENT History: Reports: Impaired Vision 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: , 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 Other OB/BYN History: 16 weeks at this time Musculoskeletal History: Reports: Fracture Neurological History: Reports: Concussion - Infectious Disease History Infectious Disease History: Reports: Chicken Pox - Past Surgical History HEENT Surgical History: Reports: None Neurological Surgical History: Reports: None Musculoskeletal Surgical History: Reports: None Oncologic Surgical History: Reports: None Social & Family History - Family History Family Medical History: Noncontributory Psychiatric: Reports: Other (See Below) Other Psychiatric Family History: mother has mental illness Endocrine/Metabolic: Reports: Diabetes, type II Other Endocrine/Metabolic Family History: mother has diabetes - Tobacco Use Smoking Status *Q: Current Every Day Smoker Years of Tobacco use: 15 Packs/Tins Daily: 1 Used Tobacco, but Quit: No Second Hand Smoke Exposure: Yes - Caffeine Use Caffeine Use: Reports: None - Alcohol Use Days Per Week of Alcohol Use: 7 Number of Drinks Per Day: 15 Total Drinks Per Week: 105 - Recreational Drug Use Recreational Drug Use: No ED ROS GENERAL - Review of Systems Review Of Systems: See Below Constitutional: Reports: No Symptoms HEENT: Reports: No Symptoms Respiratory: Reports: No Symptoms Cardiovascular: Reports: No Symptoms Endocrine: Reports: No Symptoms GI/Abdominal: Reports: Nausea, Vomiting : Reports: No Symptoms Musculoskeletal: Reports: No Symptoms Skin: Reports: No Symptoms Neurological: Reports: No Symptoms Psychiatric: Reports: No Symptoms Hematologic/Lymphatic: Reports: No Symptoms Immunologic: Reports: No Symptoms ED EXAM, GENERAL - Physical Exam Exam: See Below Exam Limited By: No Limitations General Appearance: Alert, WD/WN, No Apparent Distress Eye Exam: Bilateral Eye: Normal Inspection Ears: Normal External Exam Nose: Normal Inspection, Normal Mucosa, No Blood Throat/Mouth: Normal Inspection, Normal Lips, Normal Teeth, Normal Gums, Normal Oropharynx, Normal Voice, No Airway Compromise Head: Atraumatic, Normocephalic Neck: Normal Inspection, Supple, Non-Tender, Full Range of Motion Respiratory/Chest: No Respiratory Distress, Lungs Clear, Normal Breath Sounds, No Accessory Muscle Use, Chest Non-Tender Cardiovascular: Regular Rate, Rhythm, No Edema, No Gallop, No JVD, No Murmur, No Rub GI/Abdominal: Soft, Non-Tender Back Exam: Normal Inspection, Full Range of Motion, NT Extremities: Normal Inspection, Normal Range of Motion, Non-Tender, No Pedal Edema Neurological: Alert, Oriented, CN II-XII Intact, Normal Cognition, No Motor/ Sensory Deficits Psychiatric: Normal Affect, Normal Mood Skin Exam: Warm, Dry, Intact, Normal Color, No Rash Lymphatic: No Adenopathy Course - Vital Signs Last Recorded V/S: Last Vital Signs Temp 36.4 C 05/24/17 20:52 Pulse 77 05/24/17 20:52 Resp 18 05/24/17 20:52 BP 110/67 05/24/17 20:52 Pulse Ox 100 05/24/17 20:52 - Orders/Labs/Meds Labs: Laboratory Tests 05/24/17 05/24/17 Range/Units 21:18 21:18 Urine Color Yellow (YELLOW) Urine Appearance Slightly cloudy (CLEAR) Urine pH 7.0 H (5.0-6.5) Ur Specific [place] 1.010 (1.010-1.025) Urine Protein Negative (NEGATIVE) mg/dL Urine Glucose (UA) Normal (NEGATIVE) mg/dL Urine Ketones Negative (NEGATIVE) mg/dL Urine Occult Blood Negative (NEGATIVE) Urine Nitrite Negative (NEGATIVE) Urine Bilirubin Negative (NEGATIVE) Urine Urobilinogen Normal (NEGATIVE) mg/dL Ur Leukocyte Esterase Negative (NEGATIVE) Urine RBC 0-5 (0) Urine WBC 0-5 (0) Ur Squamous Epith Cells Rare (NS,R,O) Urine Bacteria Rare H (NS) Urine HCG, Qual Negative (NEGATIVE) - Re-Assessments/Exams Free Text/Narrative Re-Assessment/Exam: 05/24/17 21:53 u/a neg, urine HCG neg, pt reassured Departure - Departure Time of Disposition: 21:53 Disposition: Home, Self-Care 01 Condition: Good Clinical Impression: Nausea and vomiting - Discharge Information Instructions: Nausea and Vomiting, Adult Referrals: Tommie Aguilar MD [Primary Care Provider] - Forms: ED Department Discharge Additional Instructions: Rest. No caffeine for 12 hours. Maintain fluids. May work tomorrow.
[2017-05-24 22:05] VITALS: BP 105/60
== END 2017-05-24 22:03 | disposition home or self-care (01) ==
LOC: FB.ED 20:52
DX: R11.2 Nausea with vomiting, unspecified (principal); F17.210 Nicotine dependence, cigarettes, uncomplicated
CPT/HCPCS: 81001; 81025; 99282; 99283

== ENCOUNTER 2017-09-04 10:42 | Emergency (ER) | payer BC, MEDICAID ==
[2017-09-04 11:02] VITALS: BP 104/60
--- NOTE | 2017-09-04 11:14 | EDM.PDOC ---
ED HPI GENERAL MEDICAL PROBLEM - General Chief Complaint: ENT Problem Stated Complaint: RT JAW PAIN Time Seen by Provider: 09/04/17 10:45 Source of Information: Reports: Patient History Limitations: Reports: No Limitations - History of Present Illness INITIAL COMMENTS - FREE TEXT/NARRATIVE: c/o dental pain has all of her wisdom teeth, was told 1y ago by [place] dentist that she may need #32 pulled, otherwise not seen a dentist since childhood awoke 3 AM with pain at tooth #32, took APAP which helped, now pain has come back says her boyfriend thinks she can see a dentist her in town works at [employer], not working today or tomorrow Rt jaw Pain Score (Numeric/FACES): 9 - Related Data Allergies Allergy/AdvReac Type Severity Reaction Status Date / Time No Known Allergies Allergy Verified 05/24/17 21:38 Home Meds: Home Meds Amoxicillin 500 mg PO TID #21 tab 09/04/17 [Rx] Past Medical History - Past Health History Medical/Surgical History: Denies Medical/Surgical History HEENT History: Reports: Impaired Vision Genitourinary History: Reports: UTI, Recurrent 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: , 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 Other OB/BYN History: 16 weeks at this time Musculoskeletal History: Reports: Fracture Neurological History: Reports: Concussion - Infectious Disease History Infectious Disease History: Reports: Chicken Pox - Past Surgical History HEENT Surgical History: Reports: None Neurological Surgical History: Reports: None Musculoskeletal Surgical History: Reports: None Oncologic Surgical History: Reports: None Social & Family History - Family History Family Medical History: Noncontributory Psychiatric: Reports: Other (See Below) Other Psychiatric Family History: mother has mental illness Endocrine/Metabolic: Reports: Diabetes, type II Other Endocrine/Metabolic Family History: mother has diabetes - Tobacco Use Smoking Status *Q: Current Every Day Smoker Years of Tobacco use: 18 Packs/Tins Daily: 1 - Caffeine Use Caffeine Use: Reports: Energy Drinks - Recreational Drug Use Recreational Drug Use: No ED ROS ENT - Review of Systems Review Of Systems: See Below Constitutional: Reports: No Symptoms HEENT: Reports: Other (dental pain) Respiratory: Reports: No Symptoms Endocrine: Reports: No Symptoms GI/Abdominal: Reports: No Symptoms : Reports: No Symptoms Musculoskeletal: Reports: No Symptoms Skin: Reports: No Symptoms Neurological: Reports: No Symptoms Psychiatric: Reports: No Symptoms Hematologic/Lymphatic: Reports: No Symptoms Immunologic: Reports: No Symptoms ED EXAM, ENT - Physical Exam Exam: See Below Exam Limited By: No Limitations General Appearance: Alert, WD/WN, No Apparent Distress, Other (pleasant cooperative) Nose: Other (did not want to open mouth more than 1.5 cm, has mild swell over L posterior mandible and associate LNs inferiorly, mild tender externally, extensive calculus present, tooth #32 has posterior 50% covered with gingiva altho gingiva is not red or swollen, however the exposed part of the tooth is tender to palpation and there are 2 deeper cavities appreciated in the crevice c /w a dental abscess) Course - Vital Signs Last Recorded V/S: Last Vital Signs Temp 36.8 C 09/04/17 10:45 Pulse 75 09/04/17 10:45 Resp 16 09/04/17 10:45 BP 104/60 09/04/17 10:45 Pulse Ox 99 09/04/17 10:45 Departure - Departure Time of Disposition: 11:14 Disposition: Home, Self-Care 01 Condition: Good Clinical Impression: Dental abscess, Dental caries extending into dentin - Discharge Information Prescriptions: Amoxicillin 500 mg PO TID #21 tab Instructions: Dental Abscess Referrals: Tommie Aguilar MD [Primary Care Provider] - Forms: ED Department Discharge Additional Instructions: For infection, take amoxicillin 500 mg 1 tab 3 times a day for 7 days. For pain and inflammation and swelling, take ibuprofen 200 mg 3 tabs and acetaminophen 500 mg 2 tabs 4 times a day for 2 days, longer if needed. See a dentist in the next week.
== END 2017-09-04 11:25 | disposition home or self-care (01) ==
LOC: FB.ED 10:42
DX: K04.7 Periapical abscess without sinus (principal); K02.9 Dental caries, unspecified; F17.210 Nicotine dependence, cigarettes, uncomplicated
CPT/HCPCS: 99282

== ENCOUNTER 2020-05-20 20:45 | Emergency (ER) | payer SELFPAY ==
[2020-05-20 20:53] VITALS: BP 111/68; PULSE 74
--- NOTE | 2020-05-20 21:05 | EDM.PDOC ---
ED HPI GENERAL MEDICAL PROBLEM - General Chief Complaint: Lower Extremity Injury/Pain Stated Complaint: L ANKLE PAIN Time Seen by Provider: 05/20/20 20:55 Source of Information: Reports: Patient History Limitations: Reports: No Limitations - History of Present Illness INITIAL COMMENTS - FREE TEXT/NARRATIVE: c/o pain at L foot at bar, stepped off curb, rolled foot, difficult to walk not work outside house, 3 children at home during day, with her mother now Left Foot Pain Score (Numeric/FACES): 8 - Related Data Allergies Allergy/AdvReac Type Severity Reaction Status Date / Time No Known Allergies Allergy Verified 05/20/20 20:56 Home Meds: Home Meds NK [No Known Home Meds] 05/20/20 [History] Past Medical History - Past Health History Medical/Surgical History: Denies Medical/Surgical History HEENT History: Reports: Impaired Vision Genitourinary History: Reports: UTI, Recurrent 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: , 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: Musculoskeletal History: Reports: Fracture Neurological History: Reports: Concussion - Infectious Disease History Infectious Disease History: Reports: Chicken Pox - Past Surgical History HEENT Surgical History: Reports: None Female Surgical History: Reports: None Neurological Surgical History: Reports: None Musculoskeletal Surgical History: Reports: None Oncologic Surgical History: Reports: None Social & Family History - Family History Family Medical History: No Pertinent Family History Psychiatric: Reports: Other (See Below) Other Psychiatric Family History: mother has mental illness Endocrine/Metabolic: Reports: Diabetes, type II Other Endocrine/Metabolic Family History: mother has diabetes - Tobacco Use Tobacco Use Status *Q: Current Every Day Tobacco User Years of Tobacco use: 10 Packs/Tins Daily: 0.5 - Caffeine Use Caffeine Use: Reports: Coffee, Soda Other Caffeine Use: 1 per day Caffeine Use Comment: Daily - Recreational Drug Use Recreational Drug Use: No Review of Systems - Review of Systems Review Of Systems: See Below Constitutional: Reports: No Symptoms Eyes: Reports: No Symptoms Ears: Reports: No Symptoms Nose: Reports: No Symptoms Mouth/Throat: Reports: No Symptoms Respiratory: Reports: No Symptoms Cardiovascular: Reports: No Symptoms GI/Abdominal: Reports: No Symptoms Genitourinary: Reports: No Symptoms Musculoskeletal: Reports: Foot Pain Skin: Reports: No Symptoms Neurological: Reports: No Symptoms Psychiatric: Reports: No Symptoms ED EXAM, GENERAL - Physical Exam Exam: See Below Exam Limited By: No Limitations General Appearance: Alert, WD/WN Ears: Hearing Grossly Normal Head: Atraumatic, Normocephalic Neck: Normal Inspection Respiratory/Chest: No Respiratory Distress, Lungs Clear Cardiovascular: Regular Rate, Rhythm Back Exam: Normal Inspection, Full Range of Motion Extremities: Other (L foot with moderate swell and 2+ tender over prox 5th MT, no ecchymosis, remainder of foot and ankle exam neg) Neurological: Alert, Oriented, CN II-XII Intact, Normal Cognition, No Motor/Sensory Deficits Psychiatric: Normal Affect, Normal Mood Skin Exam: Warm, Dry, Intact, Normal Color, No Rash Lymphatic: No Adenopathy Course - Vital Signs Last Recorded V/S: Last Vital Signs Temp 36.7 C 05/20/20 20:49 Pulse 74 05/20/20 20:49 Resp 16 05/20/20 20:49 BP 111/68 05/20/20 20:49 Pulse Ox 100 05/20/20 20:49 - Orders/Labs/Meds Orders: Active Orders 24 hr Category Date Time Status Foot Comp Min 3V Lt [CR] Stat Exams 05/20/20 20:59 Ordered - Re-Assessments/Exams Free Text/Narrative Re-Assessment/Exam: 05/20/20 21:48 there is a chip fracture on the lateral edge of the prox 5th MT on prelim ED read of foot XR splint applied with stockinet, padding, padded fiberglass, and 4" and 3" Dane wraps Departure - Departure Time of Disposition: 21:49 Disposition: Home, Self-Care 01 Condition: Good Clinical Impression: Sprain of foot, left Metatarsal bone fracture Qualifiers: Encounter type: initial encounter Metatarsal bone: fifth Fracture type: closed Fracture alignment: nondisplaced Laterality: left Qualified Code(s): S92.355A - Nondisplaced fracture of fifth metatarsal bone, left foot, initial encounter for closed fracture - Discharge Information *PRESCRIPTION DRUG MONITORING PROGRAM REVIEWED*: Not Applicable *COPY OF PRESCRIPTION DRUG MONITORING REPORT IN PATIENT MINE: Not Applicable Instructions: Metatarsal Fracture, Foot Sprain Additional Instructions: For pain and inflammation and swelling, take ibuprofen 200 mg 4 tabs and acetaminophen 500 mg 2 tabs 3 times a day for one week. No weight bearing. Use crutches. Keep splint clean and dry. See your doctor (or an orthopedic surgeon, if you prefer) next week. Both [facility] and [place] have walk-in orthopedic clinics without the need for an appointment. They offer appointments as well. Sepsis Event Note (ED) - Evaluation Sepsis Screening Result: No Definite Risk - Focused Exam Vital Signs: Vital Signs Temp Pulse Resp BP Pulse Ox 05/20/20 20:49 36.7 C 74 16 111/68 100 - My Orders Last 24 Hours: My Active Orders 05/20/20 20:59 Foot Comp Min 3V Lt [CR] Stat - Assessment/Plan Last 24 Hours: My Active Orders 05/20/20 20:59 Foot Comp Min 3V Lt [CR] Stat
--- NOTE | 2020-05-21 10:41 | CR ---
INDICATION: Rolled left foot. Pain at proximal 5th metatarsal. LEFT FOOT: Three views of the left foot were obtained 05/20/20 - no comparisons. A fracture, dislocation or other significant bone or joint abnormality was not identified. Slight soft tissue swelling is noted overlying the lateral aspect of the proximal metaphysis of the 5th metatarsal. IMPRESSION: No acute fracture or dislocation. If symptoms persist - if occult fracture site is suspected clinically, re- examination in 10-14 days may be helpful. KEND
== END 2020-05-20 22:02 | disposition home or self-care (01) ==
LOC: FB.ED 20:45
DX: S92.355A Nondisplaced fracture of fifth metatarsal bone, left foot, initial encounter for closed fracture (principal); Z72.0 Tobacco use; X50.9XXA Other and unspecified overexertion or strenuous movements or postures, initial encounter
CPT/HCPCS: 29515; 73630-LT; 99283-25

== ENCOUNTER 2022-05-16 23:47 | Emergency (ER) | payer MEDICAID ==
[2022-05-17 02:20] VITALS: BP 120/72; PULSE 102
== END 2022-05-17 00:20 | disposition home or self-care (01) ==
LOC: FB.ED 23:47
DX: S09.90XA Unspecified injury of head, initial encounter (principal); S80.211A Abrasion, right knee, initial encounter; W18.09XA Striking against other object with subsequent fall, initial encounter; Y93.02 Activity, running
CPT/HCPCS: 99283

== ENCOUNTER 2022-12-13 17:57 | Emergency (ER) | payer MEDICAID, OTHER ==
[2022-12-13 18:27] VITALS: PULSE 87
[2022-12-13] MEDS ORDERED: traMADol 50 MG Tab PO ONE (19:52)
[2022-12-13 21:00] VITALS: BP 106/63
[2022-12-15 15:00] LABS: HIV 1,2 COMBO ANTIGEN/ANTIBODY Negative (Negative)
[2022-12-15 15:21] LABS: HEPATITIS A ANTIBODY, IGM Negative (Negative); HEPATITIS B CORE ANTIBODY, IGM Negative (Negative); HEPATITIS B SURFACE ANTIGEN Negative (Negative); HEPATITIS C AB CIA INTERP Negative (Negative); HEPATITIS C ANTIBODY CIA INDEX 0.03 IV
== END 2022-12-13 21:00 ==
LOC: FB.ED 17:57
DX: S09.90XA Unspecified injury of head, initial encounter (principal); S01.81XA Laceration without foreign body of other part of head, initial encounter; S05.12XA Contusion of eyeball and orbital tissues, left eye, initial encounter; F17.210 Nicotine dependence, cigarettes, uncomplicated; W18.30XA Fall on same level, unspecified, initial encounter
CPT/HCPCS: 12011; 36415; 70486; 80074; 87389; 99284; A9270

== ENCOUNTER 2023-11-18 15:05 | Emergency (ER) | payer MEDICAID ==
[2023-11-18 15:14] VITALS: BP 130/65; PULSE 88
[2023-11-18] MEDS: Ketorolac 30 MG/ML SDV IM ONE (15:32)
== END 2023-11-18 15:40 | disposition home or self-care (01) ==
LOC: FB.ED 15:05
DX: K04.7 Periapical abscess without sinus (principal); F17.210 Nicotine dependence, cigarettes, uncomplicated
CPT/HCPCS: 96372; 99283; J1885

== ENCOUNTER 2024-01-31 09:06 | Emergency (ER) | payer MEDICAID ==
[2024-01-31] MEDS: Lidocaine 2% Viscous Solution 15 ML UD PO ONE (09:42)
[2024-01-31 10:01] VITALS: BP 128/76; PULSE 101
== END 2024-01-31 10:30 | disposition home or self-care (01) ==
LOC: FB.ED 09:06
DX: K04.7 Periapical abscess without sinus (principal); Z79.2 Long term (current) use of antibiotics; Z79.899 Other long term (current) drug therapy
CPT/HCPCS: 99282; A9270-GY